=== PATIENT | male | born 1995 | race Caucasian/White ===

== ENCOUNTER 2016-10-10 02:44 | Emergency (ER) | payer BC ==
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
== END 2016-10-10 03:10 | disposition disaster alternative care site (69) ==
LOC: GMED 02:44
DX: S60.511A Abrasion of right hand, initial encounter (principal); I10 Essential (primary) hypertension; F32.9 Major depressive disorder, single episode, unspecified; F17.220 Nicotine dependence, chewing tobacco, uncomplicated; V89.2XXA Person injured in unspecified motor-vehicle accident, traffic, initial encounter